=== PATIENT | male | born 1975 | race Caucasian/White ===

== ENCOUNTER 2019-02-27 08:44 | Inpatient (IN) ==
[2019-02-27] MEDS ORDERED: SENOKOT PO PRN (10:43)
[2019-02-27] MEDS ORDERED: TUBERSOL ID ONE (10:43)
[2019-02-27] MEDS ORDERED: ZOFRAN IM PRN (10:43)
[2019-02-27] MEDS ORDERED: DULCOLAX PR PRN (10:43)
[2019-02-27] MEDS ORDERED: NICOTINE GUM BUCCAL PRN (10:43)
[2019-02-27] MEDS ORDERED: ZOFRAN ODT PO PRN (10:43)
[2019-02-27] MEDS ORDERED: IMODIUM PO PRN ×2 (10:43)
[2019-02-27] MEDS ORDERED: PHENOBARBITAL IV PRN (10:43)
[2019-02-27] MEDS ORDERED: MAALOX PLUS LIQUID PO PRN (10:43)
[2019-02-27] MEDS ORDERED: ZOFRAN IV PRN (10:43)
[2019-02-27] MEDS ORDERED: TYLENOL PO PRN (10:43)
[2019-02-27] MEDS ORDERED: D5W 1,000 ML IV PRN (10:43)
[2019-02-27 11:17] LABS: HEMATOCRIT 50.8 % (42.0-52.0); HEMOGLOBIN 16.8 g/dL (14.0-18.0); MCH 27.3 PG (27-31); MCHC 33.1 g/dL (33-37); MCV 82.6 FL (81-99); MPV 9.8 FL (7.4-10.4); RBC 6.15 XMIL (4.7-6.1); RDW 13.1 % (11.5-14.5); WBC 8.24 X1000 (4.8-10.8)
[2019-02-27 11:18] LABS: INR 0.92; PROTIME 12.8 Seconds (11.0-16.0)
[2019-02-27 11:21] LABS: URINE SOURCE CLEAN CATCH
[2019-02-27 11:23] LABS: AMYLASE 44 U/L (20-200); LIPASE 16 U/L (13-60)
[2019-02-27 11:25] LABS: AGAP 13; ALBUMIN 5.2 g/dL (3.5-5.0); ALKALINE PHOSPHATASE 87 U/L (32-122); BUN 13 mg/dL (8-22); CALCIUM 10.4 mg/dL (8.8-10.2); CHLORIDE 98 mmol/L (98-107); COSMO 286; ESTIMATED GFR > 60; GLUCOSE 114 mg/dL (70-104); GOT 28 U/L (10-34); GPT 38 U/L (10-44); POTASSIUM 4.2 mmol/L (3.5-5.1); SODIUM 143 mmol/L (136-145); TCO2 32 mmol/L (25-35); TOTAL PROTEIN 7.9 g/dL (6.3-8.3)
[2019-02-27 11:29] LABS: BILIRUBIN URINE NEGATIVE (NEGATIVE); BLOOD URINE NEGATIVE (NEGATIVE); CLARITY CLEAR (CLEAR); COLOR YELLOW; GLUCOSE URINE NEGATIVE (NEGATIVE); KETONE URINE TRACE mg/dL (NEGATIVE); LEUKOCYTES URINE TRACE (NEGATIVE); NITRITE URINE POSITIVE (NEGATIVE); PH URINE 6.5; PROTEIN URINE TRACE mg/dL (NEGATIVE); SP GRAVITY URINE 1.015; UROBILINOGEN URINE NORMAL
[2019-02-27 11:30] LABS: URINE BACTERIA 1+ /HFP; URINE CAST NONE SEEN /LPF; URINE CRYSTAL NONE SEEN /HPF; URINE EPITHELIAL CELLS <10 /HPF (<10); URINE RBC <10 /HPF (<10); URINE WBC <10 /HPF (<10); URINE YEAST NONE SEEN /HPF
[2019-02-27 11:38] LABS: UR AMPHETAMINES QUAL PRESUMPTIVE POSITIVE (NONE DETECT); UR BARBITUATES QUAL NONE DETECTED (NONE DETECT); UR BENZODIAZEPIN QUAL NONE DETECTED (NONE DETECT); UR CANNABINOIDS QUAL NONE DETECTED (NONE DETECT); UR COCAINE QUAL NONE DETECTED (NONE DETECT); UR METHADONE QUAL NONE DETECTED (NONE DETECT); UR METHAMPHETAMINE QUAL PRESUMPTIVE POSITIVE (NONE DETECT); UR OPIATES QUAL NONE DETECTED (NONE DETECT); UR OXYCODONE QUAL NONE DETECTED (NONE DETECT); UR PCP QUAL NONE DETECTED (NONE DETECT); UR PROPOXYPHENE QUAL NONE DETECTED (NONE DETECT); UR TCA QUAL NONE DETECTED (NONE DETECT)
[2019-02-27] MEDS: VITAMIN B-1 PO SCH (11:53)
[2019-02-27] MEDS: THERA M PLUS PO SCH (11:53)
[2019-02-27] MEDS: FOLIC ACID PO SCH (11:53)
[2019-02-27] MEDS ORDERED: BENTYL PO PRN (17:29)
[2019-02-27] MEDS: LIBRIUM PO PRN (17:50)
[2019-02-27] MEDS: ATARAX PO PRN (17:50)
[2019-02-27] MEDS: SINEMET 25/100 PO PRN (17:51)
[2019-02-27] MEDS ORDERED: SUBOXONE 8 MG/2 MG FILM SL ONE (21:00)
[2019-02-27] MEDS: VRAYLAR PO SCH (21:09)
[2019-02-27] MEDS: SEROQUEL PO PRN (21:10)
[2019-02-27] MEDS: PRILOSEC PO SCH (21:10)
[2019-02-27] MEDS: ZOCOR PO SCH (21:10)
[2019-02-28] MEDS ORDERED: PROTONIX PO SCH (07:00)
[2019-02-28] MEDS: FOLIC ACID PO SCH (08:39)
[2019-02-28] MEDS: HYDROCHLOROTHIAZIDE PO SCH (08:39)
[2019-02-28] MEDS: PRINIVIL PO SCH ×2 (08:39→08:40)
[2019-02-28] MEDS: TRINTELLIX PO SCH (08:40)
[2019-02-28] MEDS: THERA M PLUS PO SCH (08:40)
[2019-02-28] MEDS: VITAMIN B-1 PO SCH (08:41)
[2019-02-28] MEDS ORDERED: SUBOXONE 2 MG/0.5 MG FILM SL ONE (11:11)
[2019-02-28] MEDS ORDERED: SUBOXONE 2 MG/0.5 MG SL PRN (14:38)
[2019-02-28] MEDS ORDERED: ORAJEL MAXIMUM STRENGTH LIQUID TOP PRN (18:00)
[2019-02-28] MEDS ORDERED: ORAJEL MAXIMUM ST 20% GEL TOP PRN (19:19)
[2019-02-28] MEDS: VRAYLAR PO SCH (20:52)
[2019-02-28] MEDS: DESYREL PO PRN (20:52)
[2019-02-28] MEDS: ZOCOR PO SCH (20:52)
[2019-02-28] MEDS: PRILOSEC PO SCH (20:52)
[2019-03-01] MEDS ORDERED: SUBOXONE 2 MG/0.5 MG FILM SL SCH (09:00)
[2019-03-01] MEDS: TRINTELLIX PO SCH (09:31)
[2019-03-01] MEDS: THERA M PLUS PO SCH (09:32)
[2019-03-01] MEDS: PRINIVIL PO SCH (09:32)
[2019-03-01] MEDS: HYDROCHLOROTHIAZIDE PO SCH (09:32)
[2019-03-01] MEDS: FOLIC ACID PO SCH (09:32)
[2019-03-01] MEDS: VITAMIN B-1 PO SCH (09:32)
[2019-03-01] MEDS ORDERED: SUBOXONE 2 MG/0.5 MG FILM SL PRN (10:06)
[2019-03-01] MEDS: LIBRIUM PO PRN ×2 (10:20→18:45)
--- NOTE | 2019-03-01 12:47 | PROGRESS NOTE ---
DATE: 02/28/2019 SUBJECTIVE: Patient overall feeling better. Still having lots of withdrawal symptoms. [*] myalgias. Denies any diarrhea. Still having some nausea. [*] PHYSICAL EXAMINATION: Vital Signs: Reviewed and stable. General: He is awake, alert, and in no respiratory distress. HEENT: Normocephalic. Neck: Supple. Cardiovascular: Regular rate. No murmurs. Chest: Clear. Abdomen: Soft. Extremities: Moves all extremities. Neurologic: No changes. ASSESSMENT: 1. Nausea and vomiting, 2. Abdominal pain. 3. Myalgias. 4. Paresthesias. 5. Paroxysmal sweating 6. [*]stabilization. PLAN: We will continue the patient in the hospital. Continue Suboxone as tolerated. We will use symptomatic medications. Further orders as needed. cc: Mario Alberto Harper MD
[2019-03-01] MEDS: ATARAX PO PRN (15:18)
[2019-03-01] MEDS: ROBAXIN PO PRN (15:18)
--- NOTE | 2019-03-01 18:36 | PROGRESS NOTE ---
DATE: 03/01/2019 SUBJECTIVE: Patient states overall he is doing a little bit better. Did not require extra dose Suboxone last night. Muscle aches and tremors are improving. PHYSICAL: Vital signs reviewed, he is awake, alert. He is in no respiratory distress.HEENT: Normocephalic. Neck: Supple. CV: Regular rate. Chest: Clear. Abdomen: Soft. Extremities: Moves all extremities. ASSESSMENT: 1. Nausea, vomiting. 2. Abdominal pain. 3. Paresthesias. 4. Paroxysmal sweating. 5. Opiate abuse withdrawal and stabilization . 6. Chronic back pain. PLAN: Continue to wean Suboxone as tolerated. Further orders as needed. cc: Mario Alberto Harper MD
[2019-03-01] MEDS: ZOCOR PO SCH (21:05)
[2019-03-01] MEDS: PRILOSEC PO SCH (21:05)
[2019-03-01] MEDS: DESYREL PO PRN (21:06)
[2019-03-01] MEDS: VRAYLAR PO SCH (21:06)
[2019-03-02] MEDS: MOTRIN PO PRN (00:04)
[2019-03-02] MEDS: ROBAXIN PO PRN ×2 (00:04→09:37)
[2019-03-02] MEDS: ATARAX PO PRN (00:04)
[2019-03-02] MEDS: DESYREL PO PRN ×2 (00:04→21:30)
[2019-03-02] MEDS ORDERED: SUBOXONE 2 MG/0.5 MG FILM SL SCH (09:00)
[2019-03-02] MEDS: THERA M PLUS PO SCH (09:14)
[2019-03-02] MEDS: HYDROCHLOROTHIAZIDE PO SCH (09:14)
[2019-03-02] MEDS: FOLIC ACID PO SCH (09:14)
[2019-03-02] MEDS: PRINIVIL PO SCH (09:14)
[2019-03-02] MEDS: VITAMIN B-1 PO SCH (09:15)
[2019-03-02] MEDS: TRINTELLIX PO SCH (09:15)
[2019-03-02] MEDS: LIBRIUM PO PRN (09:38)
[2019-03-02] MEDS ORDERED: LIBRIUM PO ONE (13:23)
--- NOTE | 2019-03-02 19:45 | PROGRESS NOTE ---
DATE: 03/02/2019 SUBJECTIVE: Patient notes that he is anxious and nervous. States his withdrawal symptoms have improved. Denies any fevers or chills. PHYSICAL EXAMINATION: Vital Signs: Reviewed. He is awake, alert. He is in no current respiratory distress. HEENT: Normocephalic. Neck: Supple. Cardiovascular: Regular rate. No murmurs. Chest: Clear. Abdomen: Soft. Extremities: Moves all extremities. ASSESSMENT: 1. Nausea, vomiting, abdominal pain. 2. Paroxysmal sweating. 3. Anxiety depression. 4. Opiate abuse withdrawal and stabilization. PLAN: We are going to continue to wean his Suboxone. He claims that he is tolerating it okay. We decreased to 2 mg this morning with 2 mg as needed. We will add Librium for his anxiety and will follow. cc: Mario Alberto Harper MD
[2019-03-02] MEDS ORDERED: VRAYLAR PO SCH (20:45)
[2019-03-02] MEDS: ZOCOR PO SCH (21:30)
[2019-03-02] MEDS: PRILOSEC PO SCH (21:30)
[2019-03-03] MEDS: FOLIC ACID PO SCH (09:18)
[2019-03-03] MEDS: TRINTELLIX PO SCH (09:18)
[2019-03-03] MEDS: THERA M PLUS PO SCH (09:19)
[2019-03-03] MEDS: VITAMIN B-1 PO SCH (09:19)
[2019-03-03] MEDS: SUBUTEX SL SCH (09:19)
[2019-03-03] MEDS: LIBRIUM PO PRN ×3 (09:33→18:11)
[2019-03-03] MEDS ORDERED: PNEUMOVAX 23 IM ONE (17:53)
[2019-03-03] MEDS: NICODERM PATCH TD PRN (18:11)
[2019-03-03] MEDS: HYDROCHLOROTHIAZIDE PO SCH (18:30)
[2019-03-03] MEDS: PRINIVIL PO SCH (18:30)
[2019-03-03] MEDS: DESYREL PO PRN (20:29)
[2019-03-03] MEDS: SINEMET 25/100 PO PRN (20:29)
[2019-03-03] MEDS: ROBAXIN PO PRN (20:29)
[2019-03-03] MEDS: ZOCOR PO SCH (20:29)
[2019-03-03] MEDS: MOTRIN PO PRN (20:29)
[2019-03-03] MEDS: ATARAX PO PRN (20:29)
[2019-03-03] MEDS: PRILOSEC PO SCH (20:32)
[2019-03-03] MEDS ORDERED: VRAYLAR PO SCH (20:45)
[2019-03-03] MEDS: SEROQUEL PO PRN (22:04)
--- NOTE | 2019-03-03 22:52 | PROGRESS NOTE ---
DATE: 03/03/2019 SUBJECTIVE: Patient without any new complaints. States he still feels terrible; although, his anxiety is a little bit better than it was yesterday. PHYSICAL EXAMINATION: Vital Signs: Reviewed. General: He is awake, alert. He is in no respiratory distress. HEENT: Normocephalic. Neck: Supple. Cardiovascular: Regular rate. Chest: Clear. Abdomen: Soft. Extremities: Moves all extremities. Neurologic: No changes. ASSESSMENT: 1. Nausea and vomiting. 2. Abdominal pain. 3. Myalgias. 4. Paresthesias. 5. Paroxysmal sweating. 6. Opiate abuse, withdrawal and stabilization. PLAN: We will continue patient in the hospital. Continue to wean. Place him on Subutex 1 mg a day. We will follow. Hopefully we can discharge him home over the next day or two. cc: Mario Alberto Harper MD
[2019-03-04 08:28] VITALS: BP 110/51
[2019-03-04] MEDS ORDERED: VRAYLAR PO SCH (08:54)
[2019-03-04] MEDS: HYDROCHLOROTHIAZIDE PO SCH (09:08)
[2019-03-04] MEDS: VITAMIN B-1 PO SCH (09:08)
[2019-03-04] MEDS: PRINIVIL PO SCH (09:08)
[2019-03-04] MEDS: SUBUTEX SL SCH (09:08)
[2019-03-04] MEDS: THERA M PLUS PO SCH (09:08)
[2019-03-04] MEDS: TRINTELLIX PO SCH (09:08)
[2019-03-04] MEDS: FOLIC ACID PO SCH (09:08)
[2019-03-04] MEDS: NICODERM PATCH TD PRN (11:09)
== END 2019-03-04 11:12 | disposition home or self-care (01) | DRG 897 ==
LOC: P.MEDSURG 09:47
PROVIDERS: ADMIT Family Medicine; ATTEND Family Medicine